=== PATIENT | male | born 1940 | race Two or more races ===

== ENCOUNTER 2021-01-15 06:56 | Day surgery (SDC) | payer OTHER | END 2021-01-15 10:30 | disposition home or self-care (01) | LOC: AMB-ENDOS 06:56 | PROVIDERS: ATTEND Colon & Rectal Surgery | DX: D12.8 Benign neoplasm of rectum (principal); K64.8 Other hemorrhoids; Z12.11 Encounter for screening for malignant neoplasm of colon ==